=== PATIENT | female | born 1970 | race Two or more races ===

== ENCOUNTER 2017-01-04 15:45 | Emergency (ER) | payer MEDICAID ==
[~2017-01-04] VITALS: Ht 165.1 cm; Wt 83.5 kg
[2017-01-04] MEDS ORDERED: MUCINEX (16:19)
[2017-01-04] MEDS ORDERED: SERT-112 PO (16:19)
[2017-01-04] MEDS ORDERED: CLON0.5T PO (16:19)
[2017-01-04 20:00] VITALS: BP 162/99
[2017-01-04] MEDS ORDERED: IPRATROPIUM/ALBUTEROL 0.5-3(2.5)MG/3ML NEB HHN ONE (20:00)
== END 2017-01-04 22:10 | disposition home or self-care (01) ==
LOC: ER 15:45
DX: J32.9 Chronic sinusitis, unspecified (principal); R06.02 Shortness of breath
CPT/HCPCS: 94640; 99283; J7620